=== PATIENT | female | born 1940 | race Caucasian/White ===

== ENCOUNTER 2016-04-26 19:22 | Inpatient (IN) | payer OTHER, MEDICARE ==
[2016-04-26] VITALS (12 sets, daily range): BP systolic 119–183; BP diastolic 67–105; PULSE 87–114; RESP 18; TEMP 95.1–99.1; O2SAT 100
[~2016-04-26] VITALS: Ht 170.2 cm; Wt 45.3 kg
[~2016-04-26 19:22] MED LIST: FOLI1 PO; LEVA500T PO; NICO7DIS18 TD; THERM PO; THIA100T PO
[2016-04-26] MEDS ORDERED: SODIUM CHLOR 0.9% 1000 ML INJ 1,000 ML IV ONE ×2 (19:32→20:15)
[2016-04-26 19:44] LABS: AUTOMATED NEUTROPHIL # 9.9 TH/MM3 (1.8-7.7); BASOPHIL % 0.4 % (0.0-2.0); EOSINOPHIL % 0.4 % (0.0-4.0); HEMATOCRIT 43.1 % (35.0-46.0); HEMO FLAGS DIFF FINAL; LYMPH % 11.3 % (9.0-44.0); LYMPHOCYTE # 1.4 TH/MM3 (1.0-4.8); MEAN CELL VOLUME 100.9 FL (80.0-100.0); MEAN CORPUSCULAR HEMOGLOBIN 34.7 PG (27.0-34.0); MEAN CORPUSCULAR HGB CONC 34.4 % (32.0-36.0); MONO % 7.1 % (0.0-8.0); NEUT % 80.8 % (16.0-70.0); PLATELET COUNT 264 TH/MM3 (150-450); RED BLOOD COUNT 4.27 MIL/MM3 (4.00-5.30); RED CELL DISTRIBUTION WIDTH 14.4 % (11.6-17.2); WHITE BLOOD COUNT 12.2 TH/MM3 (4.0-11.0)
--- NOTE | 2016-04-26 19:50 | RADRPT ---
EXAM DATE/TIME: 04/26/2016 19:32 [facility] COMPARISON: CT BRAIN W/O CONTRAST, April 25, 2013, 14:45. INDICATIONS : Stroke alert. RADIATION DOSE: 56.35 CTDIvol (mGy) This report was called by Dr. Zeng to Dr. Garcia at 7: 48 PM MEDICAL HISTORY : Non-responsive. SURGICAL HISTORY : Non-responsive. ENCOUNTER: Initial ACUITY: 1 day PAIN SCALE: Non-responsive LOCATION: cranial TECHNIQUE: Multiple contiguous axial images were obtained of the head. Using automated exposure control and adj ustment of the mA and/or kV according to patient size, radiation dose was kept as low as reasonably a chievable to obtain optimal diagnostic quality images. FINDINGS: CEREBRUM: The ventricles are normal for age. No evidence of midline shift, mass lesion, hemorrhage or acute in farction. No extra-axial fluid collections are seen. POSTERIOR FOSSA: The cerebellum and brainstem are intact. The 4th ventricle is midline. The cerebellopontine angle i s unremarkable. EXTRACRANIAL: The visualized portion of the orbits is intact. SKULL: The calvaria is intact. No evidence of skull fracture. CONCLUSION: 1. No acute findings. Chronic white matter ischemic changes, stable. Jose Zeng MD on April 26, 2016 at 19:47 Board Certified Radiologist. This report was verified electronically.
[2016-04-26 19:51] LABS: I-STAT POTASSIUM 5.2 MMOL/L (3.5-4.9)
[2016-04-26 19:55] LABS: APTT (PATIENT) 21.4 SEC (24.3-30.1); PROTHROMBIN TIME - PATIENT 10.6 SEC (9.8-11.6)
--- NOTE | 2016-04-26 19:59 | PD ---
HPI Chief Complaint: Neuro Symptoms/ Deficits Time Seen by Provider: 19:32 Travel History International Travel<30 days: No Contact w/Intl Traveler<30days: No Traveled to known affect area: No History of Present Illness HPI The pt arrives as a stroke alert. She is 75 yo. Pt held a normal conversation with a friend approx 2 hrs prior to ER arrival. She asked a friend to come visit her. When he arrived she was found on the floor next to her easy chair. She was not responsive initially. EMS notes a GCS of 3 on scene with a rightward gaze. Blood glucose 136 with a blood pressure of 152/80 and a heart rate of 100 was observed on scene. Patient's O2 sat remained 98% throughout EMS transport for on a nasal cannula. The patient arrived to the ER she was awake and alert. She demonstrated appropriate recall and orientation; she read the NIH stroke scale sentences and identified NIHSS pictures. CN and motor function normal throughout. Case was discussed with Dr. Moody of neurology who agreed that the case probably does not reflect an acute ischemic neurologic event and certainly does not require alteplase. The patient's friend had noticed that she was acting somewhat unusual yesterday. She was embedded 8 PM, quite unusual for her she stays up late. Evidently she had no memory of the events from yes, Tuesday. He explained she also never eats food. He continues she smokes at least 2 packs of cigarettes a day PFSH Past Medical History Arthritis: Yes Asthma: No Heart Rhythm Problems: No Cancer: No Cardiovascular Problems: Yes High Cholesterol: No Chemotherapy: No Chest Pain: No Congestive Heart Failure: No COPD: Yes Cerebrovascular Accident: No Diminished Hearing: No GERD: No Genitourinary: No Hiatal Hernia: No Hypertension: Yes Musculoskeletal: Yes Neurologic: Yes Psychiatric: No Reproductive: Yes (OVARIAN CYSTS) Respiratory: Yes Immunizations Current: Yes Migraines: No Radiation Therapy: No Seizures: No Sickle Cell Disease: No Sleep Apnea: No Ulcer: No Menopausal: Yes Past Surgical History Abdominal Surgery: No AICD: No Arteriovenous Shunt: No Body Medical Devices: PLATES ON BOTH WRISTS Cardiac Surgery: No Ear Surgery: No Endocrine Surgery: No Eye Surgery: No Genitourinary Surgery: No Gynecologic Surgery: No Insulin Pump: No Joint Replacement: No Oral Surgery: No Pacemaker: No Thoracic Surgery: No Other Surgery: Yes (RIGHT ARM SURGERY) Social History Alcohol Use: Yes (6 PACK TONIGHT) Tobacco Use: Yes (2 PPD) Substance Use: No Allergies-Medications (Allergen,Severity, Reaction): Coded Allergies: No Known Allergies (Verified , 04/26/16) Reported Meds & Prescriptions Reported Meds & Active Scripts Active No Active Prescriptions or Reported Medications Review of Systems Except as stated in HPI: all other systems reviewed are Neg Cardiovascular: Positive: Syncope Physical Exam Narrative GENERAL: 75-year-old female emphysematous habitus. speaking full sentences alert and oriented 4 SKIN: Warm and dry. HEAD: Atraumatic. Normocephalic. EYES: Pupils equal and round. No scleral icterus. No injection or drainage. ENT: No nasal bleeding or discharge. Mucous membranes pink and moist. NECK: Trachea midline. No JVD. CARDIOVASCULAR: Tachycardia. Regular rhythm. RESPIRATORY: No accessory muscle use. Clear to auscultation. Breath sounds equal bilaterally. GASTROINTESTINAL: Abdomen soft, non-tender, nondistended. Hepatic and splenic margins not palpable. MUSCULOSKELETAL: No obvious deformities. No clubbing. No cyanosis. No edema. NEUROLOGICAL: Motor function is 5 over 54. The cranial nerves are symmetric throughout. Speech memory and mentation is normal. The patient can read NIH stroke scale sentences and identify NIH stroke scale pictures. PSYCHIATRIC: Appropriate mood and affect; insight and judgment normal. Data Data Last Documented VS Vital Signs Date Time Temp Pulse Resp B/P Pulse Ox O2 Delivery O2 Flow Rate FiO2 04/26/16 20:32 95.1 87 18 175/90 100 Nasal Cannula 2 Temperature of 96.2 is axillary Orders Diet Npo (04/27/16 Breakfast) Activity Bed Rest (04/26/16 ) Electrocardiogram (04/26/16 ) I-Stat Creatinine (04/26/16 19:32) I-Stat Profile (04/26/16 19:32) Prothrombin Time / Inr (Pt) (04/26/16 19:32) Act Partial Throm Time (Ptt) (04/26/16 19:32) Complete Blood Count With Diff (04/26/16 19:32) Fibrinogen (04/26/16 19:32) Creatine Kinase (Cpk) (04/26/16 19:32) Troponin I (04/26/16 19:32) Ua Includes Microscopic (04/26/16 19:32) Drug Screen, Random Urine (04/26/16 19:32) Type And Screen (04/26/16 19:32) Ct Brain W/O Iv Contrast(Rout) (04/26/16 ) Beta Hcg (Quant/Titer) (04/26/16 19:32) Consult Neurology (04/26/16 ) Blood Glucose (04/26/16 19:32) Ecg Monitoring (04/26/16 19:32) Neuro Checks Q2HX12,Q4H (04/26/16 19:32) Nursing Bedside Swallow Assess .ONCE (04/26/16 19:32) Iv Access Insert/Monitor (04/26/16 19:32) NPO (04/26/16 19:32) Oximetry (04/26/16 19:32) Oxygen Administration (04/26/16 19:32) Sodium Chlor 0.9% 1000 Ml Inj (Ns 1000 M (04/26/16 19:32) Resp Oxygen Steve C Titrat 1-4 L (04/26/16 19:32) Cath For Specimen (04/26/16 19:32) Ondansetron Inj (Zofran Inj) (04/26/16 20:00) Sodium Chlor 0.9% 1000 Ml Inj (Ns 1000 M (04/26/16 20:15) Chest, Single Ap (04/26/16 ) (Hub Use Only)Inp Phy Cons/Ref (04/26/16 ) Lactic Acid Sepsis Protocol (04/26/16 20:30) Blood Culture (04/26/16 20:30) Vancomycin Inj (Vancomycin Inj) (04/26/16 20:30) Cefepime Inj (Maxipime Inj) (04/26/16 20:30) Hepatic Functional Panel (04/26/16 20:34) Urinalysis - C+S If Indicated (04/26/16 20:34) Admit Order (Ed Use Only) (04/26/16 20:35) Warming [place] / Warming Syst PRN (04/26/16 20:35) Labs Laboratory Tests Test 04/26/16 19:28 White Blood Count 12.2 TH/MM3 Red Blood Count 4.27 MIL/MM3 Hemoglobin 14.8 GM/DL Bedside Hemoglobin 16.3 G/DL Hematocrit 43.1 % Bedside Hematocrit 48.0 % Mean Corpuscular Volume 100.9 FL Mean Corpuscular Hemoglobin 34.7 PG Mean Corpuscular Hemoglobin 34.4 % Concent Red Cell Distribution Width 14.4 % Platelet Count 264 TH/MM3 Mean Platelet Volume 7.8 FL Neutrophils (%) (Auto) 80.8 % Lymphocytes (%) (Auto) 11.3 % Monocytes (%) (Auto) 7.1 % Eosinophils (%) (Auto) 0.4 % Basophils (%) (Auto) 0.4 % Neutrophils # (Auto) 9.9 TH/MM3 Lymphocytes # (Auto) 1.4 TH/MM3 Monocytes # (Auto) 0.9 TH/MM3 Eosinophils # (Auto) 0.0 TH/MM3 Basophils # (Auto) 0.0 TH/MM3 CBC Comment DIFF FINAL Differential Comment Prothrombin Time 10.6 SEC Prothromb Time International 1.0 RATIO Ratio Activated Partial 21.4 SEC Thromboplast Time Fibrinogen 241 mg/dL Bedside Sodium 130 MMOL/L Bedside Potassium 5.2 MMOL/L Bedside Chloride 97 MMOL/L Bedside Blood Urea Nitrogen 28 MG/DL Bedside Creatinine 1.0 MG/DL Bedside Glucose 113 MG/DL Total Creatine Kinase 125 U/L Troponin I 0.02 NG/ML Human Chorionic Gonadotropin, 2 MIU/ML Quant MDM Medical Screen Exam Complete: Yes Emergency Medical Condition: Yes Differential Diagnosis Stroke, TIA, syncope, seizure, sepsis, metabolic abnormality, polypharmacy, transient global amnesia Narrative Course CBC & BMP Diagram 04/26/16 19:28 Na 130 K 5.2 Tn 0.02 BUN 28 Cr 1.0 INR 1.0 The patient is not having a stroke. EMS failed to identify other potential etiologies for altered mental status or potentially the patient had a TIA experienced a recovery upon my arrival to the room. The patient will be admitted for management of sepsis of unclear etiology at this time. Cefepime and vancomycin started. Blood cultures pending. Urinalysis and chest x-ray ordered. Case discussed with Dr. Toribio. Critical Care Narrative Aggregate critical care time was 40 minutes. Time to perform other separately billable procedures was not included in the critical care time. My time did not include minutes spent treating any other patients simultaneously or on activities that did not directly contribute to the patient's treatment. The services I provided to this patient were to treat and/or prevent clinically significant deterioration that could result in: Permanent neurologic deficit, septic shock I provided critical care services requiring my management, as noted below: Chart data review, documentation time, medication orders and management, vital sign assessments/reviewing monitor data, ordering and reviewing lab tests, ordering and interpreting/reviewing x-rays and diagnostic studies, care of the patient and discussion of the patient with the admitting physicians. Stroke Alert NIHSS NIH Stroke Scale Result: 0 NIHSS Time Completed: 19:33 Thrombolytic Contraindications Contraindications Comment: Pt was not having a stroke. Physician Communication Physician Communication Dr Fransisco Toribio Diagnosis Diagnosis: Primary Impression: ALTERED MENTAL STATUS, UNSPECIFIED Additional Impression: Sepsis Qualified Code: A41.9 - Sepsis, due to unspecified organism Admitting Physician Requests: Admit Scripts No Active Prescriptions or Reported Meds Urban Garcia MD Apr 26, 2016 19:59
[2016-04-26] MEDS ORDERED: ONDANSETRON HCL 4 MG/2 ML VIAL IV PUSH ONE (20:00)
[2016-04-26] MEDS ORDERED: CEFEPIME INJ 2,000 MG in SODIUM CHLORIDE 0.9% INJ 100 ML IV STA (20:30)
[2016-04-26] MEDS ORDERED: VANCOMYCIN INJ 1,000 MG in SODIUM CHLOR 0.9% 250 ML INJ 250 ML IV STA (20:30)
[2016-04-26] MEDS ORDERED: SODIUM CHLORIDE 0.9% FLUSH 5 ML FLUSH IVF PRN (20:45)
--- NOTE | 2016-04-26 21:14 | RADRPT ---
EXAM DATE/TIME: 04/26/2016 20:34 [facility] COMPARISON: CHEST SINGLE AP, August 02, 2013, 0:34. INDICATIONS : Fever. MEDICAL HISTORY : None. SURGICAL HISTORY : None. ENCOUNTER: Initial ACUITY: 1 day PAIN SCORE: Non-responsive. LOCATION: Bilateral chest FINDINGS: Lungs are hyperinflated. No focal consolidation. No effusion. No pneumothorax. Tortuous aorta. Scolio sis. CONCLUSION: 1. No acute findings. No focal infiltrate. Hyperinflation. Scoliosis with tortuous aorta. Compression deformities in the lower thoracic spine. Jose Zeng MD on April 26, 2016 at 21:12 Board Certified Radiologist. This report was verified electronically.
[2016-04-26] MEDS ORDERED: NICOTINE 21 MG/24 HR PATCH TD ONE (21:15)
[2016-04-26] MEDS: SODIUM CHLORIDE 0.9% FLUSH 5 ML FLUSH IVF SCH (22:46)
[2016-04-26 23:03] LABS: INDIRECT BILIRUBIN 0.5 MG/DL (0.0-0.8); TOTAL BILIRUBIN ADULT 0.7 MG/DL (0.2-1.0)
[2016-04-26 23:21] LABS: BACTERIA, URINE RARE /hpf; BLOOD, URINE SMALL (NEG); GLUCOSE,URINE NEG (NEG); HYALINE CAST, URINE 15 /lpf (RARE); KETONE, URINE 10 mg/dL (NEG); MUCUS URINE FEW /lpf (OCC); NITRITE,URINE NEG (NEG); PH, URINE 5.5 (5.0-8.5); RENAL EPITHELIAL CELLS 1 /hpf; TRANSITIONAL EPI CELLS, URINE <1 /hpf; URINE COLOR YELLOW (YELLW/STRAW)
[2016-04-27] VITALS (9 sets, daily range): BP systolic 134–169; BP diastolic 63–80; PULSE 75–96; RESP 17–19; TEMP 96–99; O2SAT 96–100
[2016-04-27 00:28] LABS: LACTIC ACID GHOST NOT REPORTABLE
[2016-04-27 01:23] LABS: AMPHETAMINE, URINE NEG (NEG); BARBITURATES, URINE NEG (NEG); COCAINE, URINE NEG (NEG)
[2016-04-27] MEDS ORDERED: LORazepam 2 MG TAB PO PRN (06:30)
[2016-04-27] MEDS ORDERED: FLUMAZENIL 0.5 MG/5 ML VIAL IV PUSH PRN (06:30)
[2016-04-27] MEDS ORDERED: LORazepam 2 MG/ML VIAL IV PUSH PRN ×4 (06:30)
[2016-04-27] MEDS ORDERED: LORazepam 1 MG TAB PO PRN (06:30)
--- NOTE | 2016-04-27 06:32 | HHI.HP ---
[facility] Service [facility] Primary Care Physician Cresencio Orellana MD Admission Diagnosis CVA Alert, Prerenal Azotemia, Hypothermia Diagnoses: Chief Complaint: I dont remember Travel History International Travel<30 Days: No Contact w/Intl Traveler <30 Da: No Traveled to Known Affected Are: No History of Present Illness History from patient, ER physician communication, and review of medical records. Patient reported that she does not remember the episodes. She states that her friend found her on the floor. She reports she was talking to her friend on the phone prior to the episode. However she does not remember what happened after she talked to her friend and does not know how long she was on the floor. According to ER report, patient was found by her friend on the floor with a GCS of 3 by the time of the EMS arrival. EMS had initially called as a stroke alert. Patient by the time of arrival to ER was speaking in full sentences and was found to be recovering with no acute focal deficits. No TPA was given. Patient was apparently complaining about memory impairment to ER physician. She was also noted to have a rectal temperature of 95.4 in ER. At the time of my exam, patient is awake, somewhat forgetful as to why she is in the hospital. She denies any symptoms such as chest pain/palpitations/dizziness/focal weakness /syncopal episodes previously. She denies any prior episodes of syncope. Denies any hematemesis/hematochezia/melena/hematuria. Denies any cough/fever/nausea/vomiting/diarrhea. Denies any urinary burning or pain on urination. Upon further questioning, patient does seem to have memory impairment. She states this has been going on for a while. She also reports to me that she smokes 2 packs a day. Regarding her alcohol history, she states that she drinks about 6 beers a day whenever she gets money from his parents. She states that she has been drinking less lately. Review of Systems Other 12 point review of system is obtained and is negative apart from what is mentioned in HPI Past Family Social History Past Medical History Hypertension COPD Medications noncompliance Possible early dementia Tobacco abuse Alcohol abuse Past Surgical History Bilateral wrist surgery Reported Medications Patient does not remember the names and doses of her medications. She stated she might not be taking any medications anymore. Reports that she was on 1 or 2 medicines for blood pressure previously. Denies being on inhalers at home. Allergies: Coded Allergies: No Known Allergies (Verified , 04/26/16) Family History Reports a family history of heart disease in her mother and father. Social History Smokes 2 packs a day. Reports she drinks about 6 packs of beer a day. She states she is cutting down but is unclear how much she is cutting down and when she started cutting down. She was mostly joking about it as well. Denies any drug abuse. Reports she still driving. Lives by herself. Physical Exam Vital Signs Vital Signs Date Time Temp Pulse Resp B/P Pulse Ox O2 Delivery O2 Flow Rate FiO2 04/27/16 06:22 97.8 87 18 169/73 96 04/27/16 04:25 84 04/27/16 00:04 99.0 95 18 160/70 100 Room Air 04/26/16 23:06 98.6 92 18 161/74 100 Room Air 04/26/16 23:00 100 Nasal Cannula 2.00 04/26/16 22:47 99.1 91 18 162/67 100 2 04/26/16 21:06 95.4 04/26/16 21:05 91 18 152/70 100 Nasal Cannula 2 04/26/16 20:32 95.1 87 18 175/90 100 Nasal Cannula 2 04/26/16 20:30 119/105 04/26/16 19:55 100 Nasal Cannula 2 04/26/16 19:52 96.2 102 18 139/69 100 Nasal Cannula 2 04/26/16 19:37 114 18 183/86 100 Nasal Cannula 04/26/16 19:27 107 18 159/88 100 04/26/16 19:25 107 18 159/88 100 04/26/16 19:24 100 Room Air 04/26/16 19:24 105 18 100 Nasal Cannula 2 Physical Exam GENERAL: This is a thin elderly lady, in no apparent distress. SKIN: No rashes, ecchymoses or lesions. Cool and dry. HEAD: Atraumatic. Normocephalic. No temporal or scalp tenderness. EYES: No scleral icterus. No injection or drainage. ENT: Nose without bleeding, purulent drainage or septal hematoma Airway patent. NECK: Trachea midline. No JVD. No neck rigidity. CARDIOVASCULAR: Regular rate and rhythm without murmurs, gallops, or rubs. RESPIRATORY: Bilateral expiratory wheezing. No bahman rales. GASTROINTESTINAL: Abdomen soft, non-tender, nondistended. No guarding. MUSCULOSKELETAL: Extremities without clubbing, cyanosis, or edema. No calf tenderness NEUROLOGICAL: Awake and alert.Motor and sensory grossly within normal limits Normal speech. Laboratory Laboratory Tests Test 04/26/16 04/26/16 04/26/16 04/26/16 19:28 21:00 21:30 21:50 White Blood Count 12.2 Red Blood Count 4.27 Hemoglobin 14.8 Bedside Hemoglobin 16.3 Hematocrit 43.1 Bedside Hematocrit 48.0 Mean Corpuscular Volume 100.9 Mean Corpuscular Hemoglobin 34.7 Mean Corpuscular Hemoglobin 34.4 Concent Red Cell Distribution Width 14.4 Platelet Count 264 Mean Platelet Volume 7.8 Neutrophils (%) (Auto) 80.8 Lymphocytes (%) (Auto) 11.3 Monocytes (%) (Auto) 7.1 Eosinophils (%) (Auto) 0.4 Basophils (%) (Auto) 0.4 Neutrophils # (Auto) 9.9 Lymphocytes # (Auto) 1.4 Monocytes # (Auto) 0.9 Eosinophils # (Auto) 0.0 Basophils # (Auto) 0.0 CBC Comment DIFF FINAL Differential Comment Prothrombin Time 10.6 Prothromb Time International 1.0 Ratio Activated Partial 21.4 Thromboplast Time Fibrinogen 241 Bedside Sodium 130 Bedside Potassium 5.2 Bedside Chloride 97 Bedside Blood Urea Nitrogen 28 Bedside Creatinine 1.0 Bedside Glucose 113 Total Creatine Kinase 125 Troponin I 0.02 Human Chorionic Gonadotropin, 2 Quant Total Bilirubin 0.7 Direct Bilirubin 0.2 Indirect Bilirubin 0.5 Aspartate Amino Transf 21 (AST/SGOT) Alanine Aminotransferase 20 (ALT/SGPT) Alkaline Phosphatase 109 Total Protein 7.8 Albumin 4.3 Blood Type A NEGATIVE Antibody Screen NEGATIVE Urine Color YELLOW Urine Turbidity HAZY Urine pH 5.5 Urine Specific [place] 1.011 Urine Protein TRACE Urine Glucose (UA) NEG Urine Ketones 10 Urine Occult Blood SMALL Urine Nitrite NEG Urine Bilirubin NEG Urine Urobilinogen LESS THAN 2.0 Urine Leukocyte Esterase LARGE Urine RBC 8 Urine WBC Urine WBC Clumps MANY Urine Transitional Epithelial <1 Cells Urine Renal Epithelial Cells 1 Urine Bacteria RARE Urine Hyaline Casts 15 Urine Mucus FEW Microscopic Urinalysis Comment Urine Opiates Screen NEG Urine Barbiturates Screen NEG Urine Amphetamines Screen NEG Urine Benzodiazepines Screen NEG Urine Cocaine Screen NEG Urine Cannabinoids Screen NEG Lactic Acid Level 2.3 Test 04/27/16 01:20 Lactic Acid Level 1.1 Date/Time Procedure Status Source Growth 04/26/16 21:10 Aerobic Blood Culture Received Blood Peripheral Pending 04/26/16 21:10 Anaerobic Blood Culture Received Blood Peripheral Pending Result Diagram: 04/26/168 Imaging Last [address] 04/26/16 0000 Signed Impressions: Service Date/Time: Tuesday, April 26, 2016 19:32 - CONCLUSION: 1. No acute findings. Chronic white matter ischemic changes, stable. Jose Zeng MD Chest X-Ray 04/26/16 0000 Signed Impressions: Service Date/Time: Tuesday, April 26, 2016 20:34 - CONCLUSION: 1. No acute findings. No focal infiltrate. Hyperinflation. Scoliosis with tortuous aorta. Compression deformities in the lower thoracic spine. Jose Zeng MD Assessment and Plan Problem List: (1) Hyponatremia ICD Code: E87.1 Status: Acute (2) Syncope and collapse ICD Code: R55 Status: Acute (3) possible seizure Status: Acute (4) ETOH abuse ICD Code: F10.10 Status: Acute Assessment and Plan Impression: Possible alcohol withdrawal seizures Syncopelikely due to above. However history is not clear. Hyponatremiano baseline labs. Questionable whether this is contributing to syncopal episode as well. Macrocytosisfrom EtOH abuse. We'll check for B-12, folate levels in an alcohol abuse patient who is having memory impairment. Hypothermiarule out sepsis. Hypertension COPD Medications noncompliance Possible early dementia Tobacco abuse Alcohol abuse Plan: Patient was given normal saline 1 L in ER. Continue normal saline at 70 cc per hour. BMP in a.m. Echocardiogram. Telemetry monitoring. Carotid sono in a smoker. EEG. Seizure precautions. Alcohol withdrawal precautions. Medications per [facility] protocol. Thiamine 100 mg by mouth daily. We'll follow blood culture and urine culture results. Patient was evaluated by neurology because she was called as a stroke alert. We 'll follow recommendations. DVT prophylaxiswith Lovenox. GI prophylaxis on pantoprazole. Discussed Condition With patient, ER Physician Certification 2 Midnight Certification Type: Admission for Inpatient Services Order for Inpatient Services The services are ordered in accordance with Medicare regulations or non- Medicare payer requirements, as applicable. In the case of services not specified as inpatient-only, they are appropriately provided as inpatient services in accordance with the 2-midnight benchmark. Estimated LOS (days): 2 days is the estimated time the patient will need to remain in the hospital, assuming treatment plan goals are met and no additional complications. Post-Hospital Plan: Home Andres Toribio MD Apr 27, 2016 06:32
--- NOTE | 2016-04-27 07:13 | PD.CONS ---
History of Present Illness Service Neurology Consult Requested By medical Reason for Consult tia? Primary Care Physician Cresencio Orellana MD History of Present Illness 75 y/o f admitted for possible tia/infection. glucose 136 in field. apparently rt gaze deviation. no focal deficit in er. nihss 0. not iv tpa candidate. noted to have sodium 130. she states she "passed out". lives alone, has a caregiver. states she rarely goes to the doctor. does not drive. has children living in the [place]. admits to drinking 5-6 beers/day. no hx of sz/stroke. denies any singleton/neck pain. Review of Systems Other 12 point review of system is obtained and is negative apart from what is mentioned in HPI/admit hp Past Family Social History Past Medical History Hypertension COPD Medications noncompliance Possible early dementia Tobacco abuse Alcohol abuse Past Surgical History Bilateral wrist surgery Reported Medications Patient does not remember the names and doses of her medications. She stated she might not be taking any medications anymore. Reports that she was on 1 or 2 medicines for blood pressure previously. Denies being on inhalers at home. Allergies: Coded Allergies: No Known Allergies (Verified , 04/26/16) Family History Reports a family history of heart disease in her mother and father. Social History Smokes 2 packs a day. Reports she drinks about 6 packs of beer a day. She states she is cutting down but is unclear how much she is cutting down and when she started cutting down. She was mostly joking about it as well. Denies any drug abuse. Reports she still driving. Lives by herself. Review of Systems All other ROS: ROS reviewed as documented in chart Past Family Social History Allergies: Coded Allergies: No Known Allergies (Verified , 04/26/16) Active Ordered Medications Current Medications Medications (Trade) Dose Ordered Sig/Ritchie Route Start Time Stop Time Status Last Admin (NS 1000 ml Inj) 1,000 ml @ 70 mls/hr [id number] ONCE IV 04/26/16 19:32 04/27/16 09:49 04/26/16 20:10 (NS Flush) 2 ml BID IVF 04/26/16 21:00 04/26/16 22:46 (NS Flush) 2 ml UNSCH PRN IVF 04/26/16 20:45 (Romazicon Inj) 0.2 mg Q1M PRN IV PUSH 04/27/16 06:30 (Ativan) 1 mg Q4H PRN PO 04/27/16 06:30 (Ativan Inj) 1 mg Q4H PRN IV PUSH 04/27/16 06:30 (Ativan) 2 mg Q2H PRN PO 04/27/16 06:30 (Ativan Inj) 2 mg Q2H PRN IV PUSH 04/27/16 06:30 (Ativan Inj) 2 mg Q1H PRN IV PUSH 04/27/16 06:30 (Ativan Inj) 2 mg Q15M PRN IV PUSH 04/27/16 06:30 (Vitamin B1) 100 mg DAILY PO 04/27/16 09:00 Exam I&O / VS Vital Signs Date Time Temp Pulse Resp B/P Pulse Ox O2 Delivery O2 Flow Rate FiO2 04/27/16 06:22 97.8 87 18 169/73 96 04/27/16 04:25 84 04/27/16 00:04 99.0 95 18 160/70 100 Room Air 04/26/16 23:06 98.6 92 18 161/74 100 Room Air 04/26/16 23:00 100 Nasal Cannula 2.00 04/26/16 22:47 99.1 91 18 162/67 100 2 04/26/16 21:06 95.4 04/26/16 21:05 91 18 152/70 100 Nasal Cannula 2 04/26/16 20:32 95.1 87 18 175/90 100 Nasal Cannula 2 04/26/16 20:30 119/105 04/26/16 19:55 100 Nasal Cannula 2 04/26/16 19:52 96.2 102 18 139/69 100 Nasal Cannula 2 04/26/16 19:37 114 18 183/86 100 Nasal Cannula 04/26/16 19:27 107 18 159/88 100 04/26/16 19:25 107 18 159/88 100 04/26/16 19:24 100 Room Air 04/26/16 19:24 105 18 100 Nasal Cannula 2 General: Alert and Oriented, No acute distress Eye: EOMI Respiratory: Non-labored respirations Neurologic: Alert, Normal motor, CN II-XII intact, Normal DTR's Psychiatric: Cooperative, Appropriate mood & affect Exam Comments alert, ox 2. not to date. calm, follows, eomi, face sym, vff, no focal weakness , no involuntary movements. pin normal all 4. gait not assessed 2/ fall risk, no clonus, planterflexor Review/Management Diagnosis/Plan: (1) Dementia, alcoholic Plan: possible r/o tia/sz aspirin/statin serial cognitive exams supervision/no driving f/u eeg/b12/mri brain iv thiamine (2) Syncope and collapse Plan: tele/echo (3) possible seizure Plan: possible; 2/2 hyponatremia/withdrawal (4) Hyponatremia Plan: per medical (5) Alcohol abuse Plan: d/w pt to reduce intake AA Problem Qualifiers (1) Dementia, alcoholic: Qualified Code: F10.97 - Dementia associated with alcoholism without behavioral disturbance Pollo Narayan MD Apr 27, 2016 07:13
[2016-04-27 08:20] LABS: HDL CHOLESTEROL 77.2 MG/DL (40.0-60.0)
[2016-04-27] MEDS ORDERED: THIAMINE HCL 100 MG TAB PO SCH (09:00)
[2016-04-27] MEDS ORDERED: ENOXAPARIN SODIUM 40 MG/0.4 ML SYRINGE SQ SCH (09:00)
--- NOTE | 2016-04-27 10:13 | RADRPT ---
EXAM DATE/TIME: 04/27/2016 08:15 [facility] COMPARISON: US CAROTID ARTERIES, April 25, 2013, 15:23. INDICATIONS : Syncope. Rate stroke alert. MEDICAL HISTORY : Hypertension. Chronic obstructive pulmonary disease. Arthritis. Syncope. Dyspnea. HX of back fracture . SURGICAL HISTORY : Bilateral wrist surgery. ENCOUNTER: Initial ACUITY: 1 day PAIN SCORE: 0/10 LOCATION: Bilateral neck PEAK SYSTOLIC VELOCITIES (cm/sec): ICA/CCA RATIO: Right: 1.5 Left: 0.6 ICA: Right: 162 Left: 57 CCA: Right: 108 Left: 93 ECA: Right: 74 Left: 60 VERTEBRAL: Right: 64 antegrade Left: 54 antegrade Elevated flow velocities and ICA/CCA ratios have been found to correlate with increased degrees of vessel stenosis, calculated as percentage of diameter relative to a normal segment of distal ICA/CCA FINDINGS: RIGHT CAROTID: Calcified plaque is noted in the carotid bulb and right proximal internal carotid artery. There is el evation of the systolic velocities in the right proximal internal carotid artery with no jet effect o r turbulence. LEFT CAROTID: No significant stenosis is visualized. Mild plaque is present. The waveforms are within normal limits . VERTEBRAL ARTERIES: Antegrade flow is seen in both vertebral arteries. MISCELLANEOUS: None. CONCLUSION: 1. Moderate plaque in the right carotid bulb and proximal internal carotid artery with less than 50% diameter stenosis by velocity criteria. 2. Milder plaque in the left carotid bulb with minimal stenosis. 3. Antegrade flow in both vertebral arteries. Cresencio Vizcarra MD on April 27, 2016 at 10:09 Board Certified Radiologist. This report was verified electronically.
[2016-04-27 10:55] LABS: HEMOGLOBIN A1a 1.1 %; HEMOGLOBIN A1b 0.7 %; HEMOGLOBIN F 1.2 %
[2016-04-27 10:56] LABS: HEMOGLOBIN Ao 86.5 %; HEMOGLOBIN P3 3.5 %
[2016-04-27] MEDS: SODIUM CHLORIDE 0.9% FLUSH 5 ML FLUSH IVF SCH ×2 (10:56→20:26)
[2016-04-27] MEDS: ASPIRIN EC 81 MG TABEC PO SCH (10:56)
[2016-04-27] MEDS: PANTOPRAZOLE SOD 40 MG DELAYED RELEASE TAB PO SCH (10:56)
[2016-04-27] MEDS: ENOXAPARIN SODIUM 40 MG/0.4 ML SYRINGE SQ SCH (10:56)
[2016-04-27] MEDS: THIAMINE INJ 100 MG in SODIUM CHLORIDE 0.9% INJ 100 ML IV SCH (11:20)
--- NOTE | 2016-04-27 14:14 | RADRPT ---
EXAM DATE/TIME: 04/27/2016 12:45 [facility] COMPARISON: No previous studies available for comparison. INDICATIONS : CVA. MEDICAL HISTORY : Hypertension. Chronic obstructive pulmonary disease. SURGICAL HISTORY : Bilat wrist surgery. ENCOUNTER: Initial ACUITY: 2 day PAIN SCORE: 10 LOCATION: head TECHNIQUE: Multiplanar, multisequence MRI of the brain was performed without contrast. FINDINGS: CEREBRUM: Mild cerebral atrophy is noted. No evidence of midline shift, mass lesion, hemorrhage or acute infarc tion. No extraaxial fluid collections are seen. The pituitary gland and suprasellar cistern are nor mal in configuration. WHITE MATTER: Severe periventricular and subcortical white matter small vessel ischemic changes are noted bilateral ly. POSTERIOR FOSSA: The cerebellum is intact. Minimal bilateral pontine small vessel ischemic changes are noted. The 4th ventricle is midline. The cerebellopontine angle is unremarkable. The cerebellar tonsils are normal in position. DIFFUSION IMAGING: No focal areas of restricted diffusion are seen. No evidence of acute infarction. EXTRACRANIAL: The visualized portions of the orbits and paranasal sinuses are unremarkable. CONCLUSION: 1. Severe periventricular and subcortical white matter small vessel ischemic changes. 2. Minimal bilateral pontine small vessel ischemic changes. 3. Mild cerebral atrophy. 4. No acute infarct, acute hemorrhage, mass effect or extra-axial fluid collections. Joaquin Garrett MD on April 27, 2016 at 14:10 Board Certified Radiologist. This report was verified electronically.
--- NOTE | 2016-04-27 14:19 | RADRPT ---
EXAM DATE/TIME: 04/27/2016 12:45 [facility] COMPARISON: No previous studies available for comparison. INDICATIONS : CVA. MEDICAL HISTORY : Chronic obstructive pulmonary disease. Hypertension. SURGICAL HISTORY : Bilateral wrist surgery. ENCOUNTER: Initial ACUITY: 2 day PAIN SCORE: 1/10 LOCATION: head Please note a normal MRA of the brain does not entirely exclude the possibility of a small aneurysm, nor the possibility of distal intracranial vessel disease. TECHNIQUE: 3D time of flight MRA was performed. Source images, multiplanar STS MIP, and 3D volume MIP reconstru ctions were reviewed. FINDINGS: There is excellent visualization of the major intracranial arteries out to the second-order branch ve ssels. There is no evidence for aneurysm, vessel truncation or stenosis, and no evidence for vascula r malformation. CONCLUSION: No acute disease. Joaquin Garrett MD on April 27, 2016 at 14:15 Board Certified Radiologist. This report was verified electronically.
--- NOTE | 2016-04-27 17:15 | EKG ---
Date Performed: 04/26/2016 Time Performed: 19:29:15 PTAGE: 75 years EKG: SINUS TACHYCARDIA RIGHT ATRIAL ENLARGEMENT LEFT ATRIAL ENLARGEMENT Since previous tracing, no significant change noted ABNORMAL ECG PREVIOUS TRACING : 08/02/2013 00.53 DOCTOR: Mario Hardy Interpretating Date/Time 04/27/2016 17:13:49
--- NOTE | 2016-04-27 19:01 | EC ---
Study Study Date:04/27/2016 STUDY CONCLUSIONS SUMMARY - Procedure narrative: Transthoracic echocardiography. Image quality was poor. The study was technically limited due to poor acoustic window availability. Scanning was performed from the subcostal acoustic windows. - Left ventricle: Systolic function was probably normal. Limited views show in generall wall thickening, and most likely a normal ejection fraction, although this cannot be assured. If concern for ejection fraction or wall motion abnormalites, would consider other modality. Images were inadequate for LV wall motion assessment. If LV function is below 40, please consider prescribing an ACEI or ARB or document rationale for non-use. PROCEDURE DATA STUDY STATUS: Elective. Procedure: Transthoracic echocardiography. Image quality was poor. The study was technically limited due to poor acoustic window availability. Scanning was performed from the subcostal acoustic windows. Study completion: The patient tolerated the procedure well. Transthoracic echocardiography. M-mode, complete 2D, complete spectral Doppler, and color Doppler. Height: Height: 67in. Weight: Weight: 98.8lb. Body mass index: BMI: 15.5kg/m^2. Body surface area: BSA: 1.5m^2. Patient status: Inpatient. CARDIAC ANATOMY LEFT VENTRICLE: Systolic function was probably normal. Limited views show in generall wall thickening, and most likely a normal ejection fraction, although this cannot be assured. Images were inadequate for LV wall motion assessment. AORTIC VALVE: Doppler: There was no stenosis. No significant regurgitation. MITRAL VALVE: The valve appears to be grossly normal. Doppler: There was no evidence for stenosis. No significant regurgitation. TRICUSPID VALVE: The valve appears to be grossly normal. Doppler: There was no evidence for stenosis. No significant regurgitation. Patient weight: 98.8lb _Ejection fraction:_ 65-75% _Fractional shortening:_ 32% up to 5Kg 5-11.5Kg 11.6-22.9Kg 23-45Kg 45-57Kg Aortic Root 7-13 <17 13-22 17-27 17-27 LA diam 6-13 <23 24-38 33-47 37-40 RVID 10-17 7-15 7-15 7-18 8-17 LVIDd 12-22 <32 24-38 33-47 37-40 LVPW 2-4 3-6 5-7 6-8 7-8 IVS 2-4 3-6 5-7 6-8 7-8 BASIC MEASUREMENTS ADULT NORMAL Left ventricle LV internal dimension, ED, chordal level, *34.7 mm 43-52 PLAX LV internal dimension, ES, chordal level, 23.9 mm 23-38 PLAX Fractional shortening, chordal level, PLAX 31 % >29 LV posterior wall thickness, ED 7.34 mm IVS/LVPW ratio, ED 1.23 <1.3 Ventricular septum Septal thickness, ED 9.05 mm DOPPLER MEASUREMENTS ADULT NORMAL Mitral valve Peak E-wave velocity 67.6 cm/s Peak A-wave velocity 101 cm/s Deceleration time *285 ms 150-230 Peak E/A ratio 0.7 LEGEND: Mean values are shown as u=mean value. Asterisk (*) rosen values outside specified normal range. Prepared and signed by Leodan Garcia [id number]
[2016-04-27] MEDS: ATORVASTATIN 20 MG TAB PO SCH (20:26)
[2016-04-28 08:00] VITALS: PULSE 74
--- NOTE | 2016-04-28 08:05 | HHI.PR ---
Review/Management Diagnosis/Plan: (1) Dementia, alcoholic Plan: probable alz/mixed dementia with severe white matter dz, atrophy and etoh use recs continue aspirin/statin will start aricept serial cognitive exams supervision, does not appear she can live on her own/no driving eeg- pending (2) Syncope and collapse Plan: tele/echo (3) possible seizure Plan: possible; 2/2 hyponatremia/withdrawal (4) Hyponatremia Plan: per medical (5) Alcohol abuse Plan: d/w pt to reduce intake AA Subjective Subjective Comments No acute events reported No headache No chest pain No dyspnea Active Medications Current Medications Medications (Trade) Dose Ordered Sig/Ritchie Route Start Time Stop Time Status Last Admin (NS Flush) 2 ml BID IVF 04/26/16 21:00 04/27/16 10:56 (NS Flush) 2 ml UNSCH PRN IVF 04/26/16 20:45 (Romazicon Inj) 0.2 mg Q1M PRN IV PUSH 04/27/16 06:30 (Ativan) 1 mg Q4H PRN PO 04/27/16 06:30 (Ativan Inj) 1 mg Q4H PRN IV PUSH 04/27/16 06:30 (Ativan) 2 mg Q2H PRN PO 04/27/16 06:30 (Ativan Inj) 2 mg Q2H PRN IV PUSH 04/27/16 06:30 (Ativan Inj) 2 mg Q1H PRN IV PUSH 04/27/16 06:30 (Ativan Inj) 2 mg Q15M PRN IV PUSH 04/27/16 06:30 (Protonix) 40 mg DAILY PO 04/27/16 09:00 04/27/16 10:56 (Ecotrin Ec) 81 mg DAILY PO 04/27/16 09:00 04/27/16 10:56 (Lovenox Inj) 40 mg Q24H SQ 04/27/16 09:00 04/27/16 10:56 Atorvastatin Calcium 20 mg 20 mg HS PO 04/27/16 21:00 04/27/16 20:26 (Thiamine Inj/NS Inj) 101 ml @ 101 mls/hr DAILY IV 04/27/16 09:00 04/27/16 11:20 Allergies Allergies Coded Allergies No Known Allergies (Verified04/26/16) Review of Systems All other ROS: ROS reviewed as documented in chart Exam I&O / VS 2/7/17 2/7/17 2/8/17 15:00 23:00 07:00 Intake Total 450 ml Balance 450 ml Intake Oral 350 ml IV Total 100 ml # Voids 3 4 # Bowel Movements 0 Vital Signs Date Time Temp Pulse Resp B/P Pulse Ox O2 Delivery O2 Flow Rate FiO2 04/27/16 23:17 85 04/27/16 21:30 98.8 75 18 157/80 98 04/27/16 14:25 96.0 91 19 152/67 97 04/27/16 08:52 99 General: Alert and Oriented, No acute distress Eye: EOMI Respiratory: Non-labored respirations Neurologic: Alert, Normal motor, CN II-XII intact, Normal DTR's Psychiatric: Cooperative, Appropriate mood & affect Exam Comments looks well, alert, ox 2. not to date. pres Trump, calm, follows, eomi, face sym , vff, no focal weakness, no involuntary movements. pin normal all 4. gait not assessed 2/ fall risk, no clonus, planterflexor Objective Micro and Labs Date/Time Procedure Status Source Growth 04/26/16 21:10 Aerobic Blood Culture - Preliminary Resulted Blood Peripheral NO GROWTH IN 1 DAY 04/26/16 21:10 Anaerobic Blood Culture - Preliminary Resulted Blood Peripheral NO GROWTH IN 1 DAY Problem Qualifiers (1) Dementia, alcoholic: Qualified Code: F10.97 - Dementia associated with alcoholism without behavioral disturbance Pollo Narayan MD Apr 28, 2016 08:05
--- NOTE | 2016-04-28 08:21 | MG ---
cc: KENNETH HANSON Lab No: [id number] Date: 04/28/2016 Age: Sex: F Race: NOTE Hyperventilation is not performed. INDICATIONS Stroke Alert, responsive. Vertigo. Alcohol. MEDICATIONS Vancomycin. FINDINGS A symmetric 8-9 Hz, 60 microvolt posterior rhythm is seen. Some diffuse theta slowing is at times seen. The recording overall is synchronous and symmetric. At times some delta slowing is noted diffusely. I suspect the patient probably falls asleep. Photic stimulation was performed without significant posterior driving. The patient did not reach Stage II sleep. IMPRESSION Some mild diffuse slowing is seen consistent with a mild diffuse encephalopathy in this awake and sleep EEG. No focal abnormalities were noted. No seizure activity was seen. MD LACY Cheng/ZAYDA /7:59 AM /8:14 AM
[2016-04-28 08:39] VITALS: BP 145/65; PULSE 69; RESP 20; TEMP 98.5; O2SAT 96
--- NOTE | 2016-04-28 08:39 | HHI.PR ---
Subjective Remarks "When can I go home" Patient reports that she is feeling better. Will consider rehab. Objective Vitals Vital Signs Date Time Temp Pulse Resp B/P Pulse Ox O2 Delivery O2 Flow Rate FiO2 04/27/16 23:17 85 04/27/16 21:30 98.8 75 18 157/80 98 04/27/16 14:25 96.0 91 19 152/67 97 04/27/16 08:52 99 I/O 04/27/16 04/27/16 04/27/16 04/28/16 04/28/16 04/28/16 07:00 15:00 23:00 07:00 15:00 23:00 Intake Total 450 ml Balance 450 ml Intake Oral 350 ml IV Total 100 ml # Voids 3 4 # Bowel Movements 0 Result Diagram: 04/26/161927 Imaging Last Impressions Head Magnetic Resonance Angiography 04/27/16 0000 Signed Impressions: Service Date/Time: Wednesday, April 27, 2016 12:45 - CONCLUSION: No acute disease. Joaquin Garrett MD Carotid Artery Ultrasound 04/27/16 0000 Signed Impressions: Service Date/Time: Wednesday, April 27, 2016 08:15 - CONCLUSION: 1. Moderate plaque in the right carotid bulb and proximal internal carotid artery with less than 50%% diameter stenosis by velocity criteria. 2. Milder plaque in the left carotid bulb with minimal stenosis. 3. Antegrade flow in both vertebral arteries. Cresencio Vizcarra MD Brain MRI 04/27/16 0000 Signed Impressions: Service Date/Time: Wednesday, April 27, 2016 12:45 - CONCLUSION: 1. Severe periventricular and subcortical white matter small vessel ischemic changes. 2. Minimal bilateral pontine small vessel ischemic changes. 3. Mild cerebral atrophy. 4. No acute infarct, acute hemorrhage, mass effect or extra-axial fluid collections. Joaquin Garrett MD Head CT 04/26/16 0000 Signed Impressions: Service Date/Time: Tuesday, April 26, 2016 19:32 - CONCLUSION: 1. No acute findings. Chronic white matter ischemic changes, stable. Jose Zeng MD Chest X-Ray 04/26/16 0000 Signed Impressions: Service Date/Time: Tuesday, April 26, 2016 20:34 - CONCLUSION: 1. No acute findings. No focal infiltrate. Hyperinflation. Scoliosis with tortuous aorta. Compression deformities in the lower thoracic spine. Jose Zeng MD Objective Remarks GENERAL: Elderly female in no apparent distress. CARDIOVASCULAR: Normal rate and regular rhythm without murmurs, gallops, or rubs. RESPIRATORY: Good respiratory efforts. Breath sounds equal and clear to auscultation bilaterally. GASTROINTESTINAL: Abdomen soft, non-tender, non-distended. Normal active bowel sounds MUSCULOSKELETAL: Extremities without cyanosis, or edema. NEURO: Alert & Oriented to self and place. She knows the president. Knows the year but not the month. Understand why she is in the hospital. Moves all extremities spontaneously. No focal weakness. PSYCH: Appropriate mood and affect. A/P Problem List: (1) Hyponatremia ICD Code: E87.1 Status: Acute (2) Syncope and collapse ICD Code: R55 Status: Acute (3) possible seizure Status: Acute (4) ETOH abuse ICD Code: F10.10 Status: Acute Assessment and Plan 75 Y/O female admitted for syncope and collapse, possible seizures. Possible alcohol withdrawal seizures: - Rally pack. [facility] protocol - Neurology following. Continue neuro checks. EEG shows diffuse slowing but no seizure activities. Patient was counseled regarding stopping the use of alcohol. - Seizure precautions. Syncopelikely due to above. Continue to monitor on telemetry. 2-D echocardiogram unrevealing as the study was limited. - Continue aspirin and statin. Probable Alzheimer's dementia: Appreciate neurology following. Patient started on Aricept. Agree with neurologist assessment that she does not appear to have the capacity to live on her own. She understand that her memory may continue to decline and may not be safe for her to be leaving on her own and driving. She is open to the idea of rehab and she will talk to her son who is out of state. - OT following. Speech therapy for cognitive eval. - Case management consult. Hyponatremiaprobably hypovolemic. She received IV fluid. Repeat labs this morning. Hypertension: Blood pressure acceptable. Continue to monitor Tobacco abuse: Patient was counseled to quit. Sander Holder MD Apr 28, 2016 08:39
[2016-04-28] MEDS: SODIUM CHLORIDE 0.9% FLUSH 5 ML FLUSH IVF SCH ×2 (09:00→20:55)
[2016-04-28] MEDS: PANTOPRAZOLE SOD 40 MG DELAYED RELEASE TAB PO SCH (09:00)
[2016-04-28] MEDS: ASPIRIN EC 81 MG TABEC PO SCH (09:00)
[2016-04-28] MEDS: DONEPEZIL HCL 5 MG TAB PO SCH (09:00)
[2016-04-28] MEDS ORDERED: ENALAPRILAT 1.25 MG/ML VIAL IV PRN (09:00)
[2016-04-28] MEDS: ENOXAPARIN SODIUM 40 MG/0.4 ML SYRINGE SQ SCH (09:00)
[2016-04-28] MEDS: THIAMINE INJ 100 MG in SODIUM CHLORIDE 0.9% INJ 100 ML IV SCH (09:40)
[2016-04-28 10:55] LABS: AUTOMATED NEUTROPHIL # 4.1 TH/MM3 (1.8-7.7); BASOPHIL # 0.1 TH/MM3 (0-0.2); BASOPHIL % 0.9 % (0.0-2.0); EOSINOPHIL # 0.1 TH/MM3 (0-0.4); HEMATOCRIT 42.7 % (35.0-46.0); HEMO FLAGS DIFF FINAL; LYMPH % 20.6 % (9.0-44.0); LYMPHOCYTE # 1.2 TH/MM3 (1.0-4.8); MEAN CELL VOLUME 98.6 FL (80.0-100.0); MEAN CORPUSCULAR HEMOGLOBIN 34.7 PG (27.0-34.0); MEAN CORPUSCULAR HGB CONC 35.2 % (32.0-36.0); MONO % 8.9 % (0.0-8.0); NEUT % 68.6 % (16.0-70.0); PLATELET COUNT 245 TH/MM3 (150-450); RED BLOOD COUNT 4.33 MIL/MM3 (4.00-5.30); RED CELL DISTRIBUTION WIDTH 14.1 % (11.6-17.2)
[2016-04-28 12:30] VITALS: BP 161/71; PULSE 75; RESP 18; TEMP 97.6; O2SAT 96
[2016-04-28 13:36] LABS: BICARBONATE 30.9 MEQ/L (21.0-32.0); POTASSIUM 3.9 MEQ/L (3.5-5.1)
[2016-04-28 15:52] VITALS: PULSE 71
[2016-04-28] MEDS ORDERED: NICOTINE 14 MG/24 HR PATCH TD ONE (18:15)
[2016-04-28 20:16] VITALS: BP 154/72; PULSE 74; RESP 21; TEMP 97.8; O2SAT 98
[2016-04-28] MEDS: ATORVASTATIN 20 MG TAB PO SCH (20:55)
[2016-04-28 22:00] VITALS: PULSE 71
[2016-04-29] VITALS (11 sets, daily range): BP systolic 131–152; BP diastolic 59–83; PULSE 67–108; RESP 16–21; TEMP 96–98.8; O2SAT 94–98
[2016-04-29] MEDS: ASPIRIN EC 81 MG TABEC PO SCH (08:55)
[2016-04-29] MEDS: THIAMINE INJ 100 MG in SODIUM CHLORIDE 0.9% INJ 100 ML IV SCH (08:55)
[2016-04-29] MEDS: PANTOPRAZOLE SOD 40 MG DELAYED RELEASE TAB PO SCH (08:55)
[2016-04-29] MEDS: ENOXAPARIN SODIUM 40 MG/0.4 ML SYRINGE SQ SCH (08:56)
[2016-04-29] MEDS: SODIUM CHLORIDE 0.9% FLUSH 5 ML FLUSH IVF SCH ×2 (08:56→20:30)
[2016-04-29] MEDS: DONEPEZIL HCL 5 MG TAB PO SCH (08:56)
[2016-04-29] MEDS ORDERED: REMOVE OLD PATCH TD ONE (09:00)
[2016-04-29] MEDS ORDERED: PANT40TA3 PO (11:53)
[2016-04-29] MEDS ORDERED: ARIC5TAB PO (11:53)
[2016-04-29] MEDS ORDERED: LIPI20TA PO (11:53)
[2016-04-29] MEDS ORDERED: ASPI81TA11 PO (11:53)
--- NOTE | 2016-04-29 11:54 | HHI.DS ---
Discharge Summary Admission Date Apr 26, 2016 at 20:37 Discharge Date: Apr 29, 2016 Admitting Diagnosis CVA Alert, Prerenal Azotemia, Hypothermia (1) Hyponatremia ICD Code: E87.1 (2) Syncope and collapse ICD Code: R55 (3) possible seizure (4) ETOH abuse ICD Code: F10.10 Procedures None Brief History - From Admission History from patient, ER physician communication, and review of medical records. Patient reported that she does not remember the episodes. She states that her friend found her on the floor. She reports she was talking to her friend on the phone prior to the episode. However she does not remember what happened after she talked to her friend and does not know how long she was on the floor. According to ER report, patient was found by her friend on the floor with a GCS of 3 by the time of the EMS arrival. EMS had initially called as a stroke alert. Patient by the time of arrival to ER was speaking in full sentences and was found to be recovering with no acute focal deficits. No TPA was given. Patient was apparently complaining about memory impairment to ER physician. She was also noted to have a rectal temperature of 95.4 in ER. At the time of my exam, patient is awake, somewhat forgetful as to why she is in the hospital. She denies any symptoms such as chest pain/palpitations/dizziness/focal weakness /syncopal episodes previously. She denies any prior episodes of syncope. Denies any hematemesis/hematochezia/melena/hematuria. Denies any cough/fever/nausea/vomiting/diarrhea. Denies any urinary burning or pain on urination. Upon further questioning, patient does seem to have memory impairment. She states this has been going on for a while. She also reports to me that she smokes 2 packs a day. Regarding her alcohol history, she states that she drinks about 6 beers a day whenever she gets money from his parents. She states that she has been drinking less lately. CBC/BMP: 04/28/16 1033 04/28/16 1033 Significant Findings Laboratory Tests Test 2/604/26/16 04/26/16 04/27/16 19:28 21:30 21:50 06:48 White Blood Count 12.2 TH/MM3 (4.0-11.0) Mean Corpuscular Volume 100.9 FL (80.0-100.0) Mean Corpuscular Hemoglobin 34.7 PG (27.0-34.0) Neutrophils (%) (Auto) 80.8 % (16.0-70.0) Neutrophils # (Auto) 9.9 TH/MM3 (1.8-7.7) Activated Partial 21.4 SEC Thromboplast Time (24.3-30.1) Bedside Sodium 130 MMOL/L (138-146) Bedside Potassium 5.2 MMOL/L (3.5-4.9) Bedside Chloride 97 MMOL/L (98-109) Bedside Blood Urea Nitrogen 28 MG/DL (8-26) Bedside Glucose 113 MG/DL (60-95) Urine Turbidity HAZY (CLEAR) Urine Ketones 10 mg/dL (NEG) Urine Occult Blood SMALL (NEG) Urine Leukocyte Esterase LARGE (NEG) Urine RBC 8 /hpf (0-3) Urine WBC Clumps MANY (NONE) Urine Bacteria RARE /hpf (NONE) Urine Mucus FEW /lpf (OCC) Lactic Acid Level 2.3 mmol/L (0.4-2.0) Cholesterol Level 220 MG/DL (120-200) LDL Cholesterol 125 MG/DL (0-99) HDL Cholesterol 77.2 MG/DL (40.0-60.0) Test 04/28/16 10:33 Mean Corpuscular Hemoglobin 34.7 PG (27.0-34.0) Monocytes (%) (Auto) 8.9 % (0.0-8.0) Sodium Level 131 MEQ/L (136-145) Chloride Level 95 MEQ/L (98-107) Estimat Glomerular Filtration 62 ML/MIN (>89) Rate Imaging Last Impressions Head Magnetic Resonance Angiography 04/27/16 0000 Signed Impressions: Service Date/Time: Wednesday, April 27, 2016 12:45 - CONCLUSION: No acute disease. Joaquin Garrett MD Carotid Artery Ultrasound 04/27/16 0000 Signed Impressions: Service Date/Time: Wednesday, April 27, 2016 08:15 - CONCLUSION: 1. Moderate plaque in the right carotid bulb and proximal internal carotid artery with less than 50%% diameter stenosis by velocity criteria. 2. Milder plaque in the left carotid bulb with minimal stenosis. 3. Antegrade flow in both vertebral arteries. Cresencio Vizcarra MD Brain MRI 04/27/16 Signed Impressions: Service Date/Time: Wednesday, April 27, 2016 12:45 - CONCLUSION: 1. Severe periventricular and subcortical white matter small vessel ischemic changes. 2. Minimal bilateral pontine small vessel ischemic changes. 3. Mild cerebral atrophy. 4. No acute infarct, acute hemorrhage, mass effect or extra-axial fluid collections. Joaquin Garrett MD Head CT 04/26/16 0000 Signed Impressions: Service Date/Time: Tuesday, April 26, 2016 19:32 - CONCLUSION: 1. No acute findings. Chronic white matter ischemic changes, stable. Jose Zeng MD Chest X-Ray 04/26/16 Signed Impressions: Service Date/Time: Tuesday, April 26, 2016 20:34 - CONCLUSION: 1. No acute findings. No focal infiltrate. Hyperinflation. Scoliosis with tortuous aorta. Compression deformities in the lower thoracic spine. Jose Zeng MD PE at Discharge GENERAL: Elderly female in no apparent distress. CARDIOVASCULAR: Normal rate and regular rhythm without murmurs, gallops, or rubs. RESPIRATORY: Good respiratory efforts. Breath sounds equal and clear to auscultation bilaterally. GASTROINTESTINAL: Abdomen soft, non-tender, non-distended. Normal active bowel sounds MUSCULOSKELETAL: Extremities without cyanosis, or edema. NEURO: Alert & Oriented to self and place. She knows the president. Knows the year but not the month. Understand why she is in the hospital. Moves all extremities spontaneously. No focal weakness. PSYCH: Appropriate mood and affect. Pt update on day of discharge Patient reports that she is feeling well. No acute events overnight. Looking forward to go to rehabilitation. She talked to her son and is planning to eventually move back to [place] with him. Hospital Course 75 Y/O female admitted for syncope and collapse, possible seizures. Evaluation and treatment course detailed below: Possible alcohol withdrawal seizures: - Patient cheated with Rally pack. [facility] protocol - Neurology followed the patient. EEG shows diffuse slowing but no seizure activities. Patient was counseled regarding stopping the use of alcohol. - Seizure precautions. No further seizure activities were noted. She is not discharged on any seizure medications. Syncopelikely due to above. 2-D echocardiogram unrevealing as the study was limited. Telemetric monitoring was unrevealing. - Continue aspirin and statin. 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 Patient started on Aricept. Agree with neurologist assessment that she does not appear to have the capacity to live on her own. She understand that her memory may continue to decline and may not be safe for her to be leaving on her own and driving. She agreed for rehabilitation at a prison facility. Her plan is to eventually go live with her son in [place]. Hyponatremiachronic due to alcohol abuse. Stable. Hypertension: Blood pressure acceptable. Tobacco abuse: Patient was counseled to quit. Pt Condition on Discharge: Good Discharge Disposition: Discharge to SNF Discharge Time: > 30 minutes Discharge Instructions DIET: Follow Instructions for: Heart Healthy Diet Speech Therapy-Diet Recommends: Regular Activities you can perform: Regular-No Restrictions, See Additionl Instruction Other Activity Instructions: Per physical therapy instructions. Follow up Referrals: PCP Follow-up - 2 Weeks New Medications: Aspirin DR (Aspirin EC) 81 Mg Tabdr 81 MG PO DAILY #30 TAB Atorvastatin (Lipitor) 20 Mg Tab 20 MG PO HS #30 TAB Donepezil (Aricept) 5 Mg Tab 5 MG PO DAILY #30 TAB Pantoprazole (Pantoprazole) 40 Mg Tab 40 MG PO DAILY #30 TAB Sander Holder MD Apr 29, 2016 11:54
[2016-04-29 14:00] LABS: HEMATOCRIT 42.5 % (35.0-46.0); MEAN CELL VOLUME 99.3 FL (80.0-100.0); MEAN CORPUSCULAR HGB CONC 34.3 % (32.0-36.0); PLATELET COUNT 224 TH/MM3 (150-450); RED BLOOD COUNT 4.28 MIL/MM3 (4.00-5.30); RED CELL DISTRIBUTION WIDTH 13.8 % (11.6-17.2); REVIEW FLAG FINAL
[2016-04-29 14:17] LABS: BICARBONATE 25.4 MEQ/L (21.0-32.0); POTASSIUM 4.4 MEQ/L (3.5-5.1)
[2016-04-29] MEDS: ATORVASTATIN 20 MG TAB PO SCH (20:30)
[2016-04-30 00:47] VITALS: PULSE 82
[2016-04-30 03:02] VITALS: BP 150/72; PULSE 81; RESP 19; TEMP 98.1; O2SAT 97
[2016-04-30 07:20] VITALS: BP 179/83; PULSE 86; RESP 17; TEMP 98.1; O2SAT 96
--- NOTE | 2016-04-30 08:38 | HHI.PR ---
Review/Management Diagnosis/Plan: (1) Dementia, alcoholic Plan: probable alz/mixed dementia with severe white matter dz, atrophy and etoh use exam stable recs continue aspirin/statin on aricept serial cognitive exams supervision, does not appear she can live on her own/no driving f/u with us in 2-3 weeks outpatient (2) Syncope and collapse Plan: tele/echo (3) possible seizure Plan: possible; 2/2 hyponatremia/withdrawal (4) Hyponatremia Plan: per medical (5) Alcohol abuse Plan: d/w pt to reduce intake AA Subjective Subjective Comments No acute events reported No headache No chest pain No dyspnea Active Medications Current Medications Medications (Trade) Dose Ordered Sig/Ritchie Route Start Time Stop Time Status Last Admin (NS Flush) 2 ml BID IVF 04/26/16 21:00 04/29/16 20:30 (NS Flush) 2 ml UNSCH PRN IVF 04/26/16 20:45 (Romazicon Inj) 0.2 mg Q1M PRN IV PUSH 04/27/16 06:30 (Ativan) 1 mg Q4H PRN PO 04/27/16 06:30 (Ativan Inj) 1 mg Q4H PRN IV PUSH 04/27/16 06:30 (Ativan) 2 mg Q2H PRN PO 04/27/16 06:30 (Ativan Inj) 2 mg Q2H PRN IV PUSH 04/27/16 06:30 (Ativan Inj) 2 mg Q1H PRN IV PUSH 04/27/16 06:30 (Ativan Inj) 2 mg Q15M PRN IV PUSH 04/27/16 06:30 (Protonix) 40 mg DAILY PO 04/27/16 09:00 04/29/16 08:55 (Ecotrin Ec) 81 mg DAILY PO 04/27/16 09:00 04/29/16 08:55 (Lovenox Inj) 40 mg Q24H SQ 04/27/16 09:00 04/29/16 08:56 Atorvastatin Calcium 20 mg 20 mg HS PO 04/27/16 21:00 04/29/16 20:30 (Thiamine Inj/NS Inj) 101 ml @ 101 mls/hr DAILY IV 04/27/16 09:00 04/29/16 08:55 (Aricept) 5 mg DAILY PO 04/28/16 09:00 04/29/16 08:56 (Vasotec Inj) 1.25 mg Q6H PRN IV 04/28/16 09:00 Allergies Allergies Coded Allergies No Known Allergies (Verified04/26/16) Review of Systems All other ROS: ROS reviewed as documented in chart Exam I&O / VS 04/29/16 04/29/16 04/30/16 15:00 23:00 07:00 Intake Total 600 ml Balance 600 ml Intake Oral 500 ml IV Total 100 ml # Voids 2 Vital Signs Date Time Temp Pulse Resp B/P Pulse Ox O2 Delivery O2 Flow Rate FiO2 04/30/16 07:20 98.1 86 17 179/83 96 04/30/16 03:02 98.1 81 19 150/72 97 04/30/16 00:47 82 04/29/16 23:26 98.1 81 19 133/66 97 04/29/16 22:13 83 04/29/16 20:07 98.1 85 19 131/65 94 04/29/16 16:00 96.7 77 20 137/68 97 04/29/16 11:59 108 141/62 97 04/29/16 11:57 95 132/59 96 04/29/16 11:56 82 135/59 04/29/16 11:30 96.0 84 18 151/72 97 General: Alert and Oriented, No acute distress Eye: EOMI Respiratory: Non-labored respirations Neurologic: Alert, Normal motor, CN II-XII intact, Normal DTR's Psychiatric: Cooperative, Appropriate mood & affect Exam Comments alert, ox 2. 'may,". pres Trump, "i'm going to rehab for a few days ", calm, follows, eomi, face sym, vff, no focal weakness, no involuntary movements. pin normal all 4. gait not assessed 2/ fall risk, no clonus, planterflexor Objective Micro and Labs Laboratory Tests Test 04/29/16 04/29/16 13:30 13:43 Sodium Level 128 Potassium Level 4.4 Chloride Level 95 Carbon Dioxide Level 25.4 Anion Gap 8 Blood Urea Nitrogen 8 Creatinine 0.78 Estimat Glomerular Filtration 72 Rate Random Glucose 123 Calcium Level 9.1 White Blood Count 11.0 Red Blood Count 4.28 Hemoglobin 14.6 Hematocrit 42.5 Mean Corpuscular Volume 99.3 Mean Corpuscular Hemoglobin 34.0 Mean Corpuscular Hemoglobin 34.3 Concent Red Cell Distribution Width 13.8 Platelet Count 224 Mean Platelet Volume 8.0 Date/Time Procedure Status Source Growth 04/26/16 21:10 Aerobic Blood Culture - Preliminary Resulted Blood Peripheral NO GROWTH IN 3 DAYS 04/26/16 21:10 Anaerobic Blood Culture - Preliminary Resulted Blood Peripheral NO GROWTH IN 3 DAYS Problem Qualifiers (1) Dementia, alcoholic: Qualified Code: F10.97 - Dementia associated with alcoholism without behavioral disturbance Pollo Narayan MD Apr 30, 2016 08:38
[2016-04-30] MEDS: DONEPEZIL HCL 5 MG TAB PO SCH (09:17)
[2016-04-30] MEDS: ENOXAPARIN SODIUM 40 MG/0.4 ML SYRINGE SQ SCH (09:17)
[2016-04-30] MEDS: ASPIRIN EC 81 MG TABEC PO SCH (09:17)
[2016-04-30] MEDS: PANTOPRAZOLE SOD 40 MG DELAYED RELEASE TAB PO SCH (09:17)
[2016-04-30] MEDS: SODIUM CHLORIDE 0.9% FLUSH 5 ML FLUSH IVF SCH (09:20)
[2016-04-30] MEDS: THIAMINE INJ 100 MG in SODIUM CHLORIDE 0.9% INJ 100 ML IV SCH (09:21)
[2016-04-30 12:18] VITALS: BP 144/66; PULSE 91; RESP 18; TEMP 98; O2SAT 97
[2016-04-30 15:31] VITALS: BP 142/79; PULSE 92; RESP 18; TEMP 100; O2SAT 95
== END 2016-04-30 18:31 | DRG 897 ==
LOC: NEPE 19:22 → NEDA 20:37 → NEDH 04-27 00:37 → NEPFCDU 04-27 03:08
PROVIDERS: ADMIT Hospitalist; ATTEND Hospitalist
DX: F10.239 Alcohol dependence with withdrawal, unspecified (principal); E87.1 Hypo-osmolality and hyponatremia; F10.27 Alcohol dependence with alcohol-induced persisting dementia; R56.9 Unspecified convulsions; G30.9 Alzheimer's disease, unspecified; F02.80 Dementia in other diseases classified elsewhere, unspecified severity, without behavioral disturbance, psychotic disturbance, mood disturbance, and anxiety; J44.9 Chronic obstructive pulmonary disease, unspecified; D75.89 Other specified diseases of blood and blood-forming organs; I10 Essential (primary) hypertension; F17.210 Nicotine dependence, cigarettes, uncomplicated; M19.90 Unspecified osteoarthritis, unspecified site; Z91.14 Patient's other noncompliance with medication regimen; Z82.49 Family history of ischemic heart disease and other diseases of the circulatory system; R55 Syncope and collapse; E86.1 Hypovolemia
CPT/HCPCS: 70450; 70544; 70551; 71010; 80048; 80061; 80076; 80307; 80320; 81001; 82435; 82550; 82565; 82607; 82746; 82947; 83036; 83605; 84132; 84295; 84484; 84520; 84702; 85025; 85027; 85384; 85610; 85730; 86850; 86900; 86901; 87040; 93005; 93306; 93880; 95819; 96374; J0692; J1650; J2405; J3370; J3411; J7030; J7050